=== PATIENT | female | born 1960 | race Caucasian/White ===

== ENCOUNTER → 2018-02-27 | Outpatient (CLI) | payer BC ==
--- NOTE | 2018-03-01 13:47 | MM ---
Reason for exam: screening (asymptomatic). Last mammogram was performed 1 year and 11 months ago. History: Patient is postmenopausal. Benign left US cyst aspiration ea add of the left breast, December 12, 2004. Benign left US cyst aspiration of the left breast, December 12, 2004. Physical Findings: A clinical breast exam by your physician is recommended on an annual basis and results should be correlated with mammographic findings. MG 3D Screening Mammo W/Cad Bilateral CC and MLO view(s) were taken. Prior study comparison: April 07, 2016, bilateral MG screening mammo w CAD. December 31, 2013, bilateral MG screening mammo w CAD. The breast tissue is heterogeneously dense. This may lower the sensitivity of mammography. Stable benign calcifications. New nodular density upper inner left breast 5cm from nipple. ASSESSMENT: Incomplete: need additional imaging evaluation, BI-RAD 0 RECOMMENDATION: Special view mammogram and ultrasound of the left breast. [facility] will attempt to contact patient to return for supplemental views and ultrasound.
== END ==
LOC: RADMAMWWP 07:59
PROVIDERS: ATTEND Obstetrics & Gynecology
DX: Z12.31 Encounter for screening mammogram for malignant neoplasm of breast (principal)
CPT/HCPCS: 77063; 77067

== ENCOUNTER → 2018-03-04 | Outpatient (CLI) | payer BC ==
--- NOTE | 2018-03-05 09:59 | MM ---
Reason for exam: additional evaluation requested from abnormal screening. Last mammogram was performed less than 1 month ago. History: Patient is postmenopausal. Benign left US cyst aspiration ea add of the left breast, December 12, 2004. Benign left US cyst aspiration of the left breast, December 12, 2004. Physical Findings: Nurse did not find any significant physical abnormalities on exam. MG 3D Work Up W/Cad LT Spot compression CC, spot compression MLO, and LM view(s) were taken of the left breast. Prior study comparison: February 27, 2018, bilateral MG 3d screening mammo w/cad. April 07, 2016, bilateral MG screening mammo w CAD. The breast tissue is heterogeneously dense. This may lower the sensitivity of mammography. Finding: There is a 8 mm circumscribed oval mass in the upper quadrant, middle position of the left breast, persists on additional views. These results were verbally communicated with the patient and result sheet given to the patient on 03/04/18. ASSESSMENT: Incomplete: need additional imaging evaluation, BI-RAD 0 RECOMMENDATION: Ultrasound of the left breast.
--- NOTE | 2018-03-05 11:11 | USB ---
Reason for exam: additional evaluation requested from abnormal screening. History: Patient is postmenopausal. Benign left US cyst aspiration ea add of the left breast, December 12, 2004. Benign left US cyst aspiration of the left breast, December 12, 2004. US Breast Workup Limited LT Left limited breast ultrasound including focal area of concern, retroareolar and axilla demonstrates a 0.7 x 0.2 x 1.1cm oval, cystic lesion at 9 o'clock, a 0.7 x 0.4 x 0.6cm round, mixed lesion at 10 o'clock, a 0.9cm cystic lesion at 11 o'clock, a 1.0 x 0.3 x 0.5cm ductal lesion at 12 o'clock and a 0.8 x 0.4 x 0.9cm cystic lesion at 12 o'clock. These results were verbally communicated with the patient and result sheet given to the patient on 03/04/18. ASSESSMENT: Probably benign, BI-RAD 3 RECOMMENDATION: Follow-up diagnostic mammogram and ultrasound of the left breast in 6 months.
== END | disposition home or self-care (01) ==
LOC: RADMAMWWP 14:10
PROVIDERS: ATTEND Obstetrics & Gynecology
DX: R92.8 Other abnormal and inconclusive findings on diagnostic imaging of breast (principal)
CPT/HCPCS: 77061; 77065

== ENCOUNTER → 2019-06-23 | Outpatient (CLI) | payer BC ==
--- NOTE | 2019-06-24 13:25 | MM ---
Reason for exam: screening (asymptomatic). Last mammogram was performed 1 year and 4 months ago. History: Patient is postmenopausal. Benign left US cyst aspiration ea add of the left breast, December 12, 2004. Benign left US cyst aspiration of the left breast, December 12, 2004. Physical Findings: A clinical breast exam by your physician is recommended on an annual basis and results should be correlated with mammographic findings. MG Screening Mammo w CAD Bilateral CC and MLO view(s) were taken. Prior study comparison: February 27, 2018, bilateral MG 3d screening mammo w/cad. April 07, 2016, bilateral MG screening mammo w CAD. December 31, 2013, bilateral MG screening mammo w CAD. The breast tissue is heterogeneously dense. This may lower the sensitivity of mammography. There is chronic nodularity in the left breast. Benign oil cyst calcifications on the right. No significant changes when compared with prior studies. ASSESSMENT: Negative, BI-RAD 1 RECOMMENDATION: Routine screening mammogram of both breasts in 1 year.
== END | disposition home or self-care (01) ==
LOC: RADMAMWWP 14:47
PROVIDERS: ATTEND Family Medicine
DX: Z12.31 Encounter for screening mammogram for malignant neoplasm of breast (principal)
CPT/HCPCS: 77067

== ENCOUNTER → 2020-11-09 | Outpatient (CLI) | payer BC ==
--- NOTE | 2020-11-13 13:39 | MM ---
Reason for exam: screening (asymptomatic). Last mammogram was performed 1 year and 5 months ago. History: Patient is postmenopausal. Benign left US cyst aspiration ea add of the left breast, December 12, 2004. Benign left US cyst aspiration of the left breast, December 12, 2004. Physical Findings: A clinical breast exam by your physician is recommended on an annual basis and results should be correlated with mammographic findings. MG 3D Screening Mammo W/Cad Bilateral CC and MLO view(s) were taken. Prior study comparison: June 23, 2019, bilateral MG screening mammo w CAD. March 04, 2018, left breast MG 3d work up w/cad LT. February 27, 2018, bilateral MG 3d screening mammo w/cad. The breast tissue is heterogeneously dense. This may lower the sensitivity of mammography. There is chronic nodularity in the left breast. No significant changes when compared with prior studies. ASSESSMENT: Benign, BI-RAD 2 RECOMMENDATION: Routine screening mammogram of both breasts in 1 year.
== END | disposition home or self-care (01) ==
LOC: RADMAMWWP 08:14
PROVIDERS: ATTEND Internal Medicine
DX: Z12.31 Encounter for screening mammogram for malignant neoplasm of breast (principal); Z78.0 Asymptomatic menopausal state
CPT/HCPCS: 77063; 77067

== ENCOUNTER 2021-03-20 09:27 | Day surgery (SDC) | payer BC ==
[2021-03-18 16:29] VITALS: BMI 23.1
[~2021-03-20 09:27] MED LIST: LACTATED RINGERS 1,000 ML IV SCH; LIDOCAINE 1% (10MG/ML) FOR IV START INTRADERMA PRN
[2021-03-20 09:54] VITALS: RESP 16; TEMP 97.8
[2021-03-20] MEDS ORDERED: PROPOFOL 10 MG/ML 20 ML VIAL IV ONE (10:32)
--- NOTE | 2021-03-20 10:51 | P.PCN ---
Date of Procedure: 03/20/21 Procedure(s) Performed: BRIEF HISTORY: Patient is a 60-year-old pleasant 1 scheduled for an elective colonoscopy as a part of value should prior history of colon polyps and family history of colon cancer. Her mother and maternal grandmother both were diagnosed with colon cancer in the 60's. She also has 2 maternal aunts that was diagnosed with colon cancer. PROCEDURE PERFORMED: Colonoscopy. PREOPERATIVE DIAGNOSIS: Screening for colon cancer and family history of colon cancer.. IV sedation per Anesthesia. PROCEDURE: After informed consent was obtained, the patient, was brought into the endoscopy unit. IV sedation was administered by Anesthesia under continuous monitoring. Digital rectal examination was normal. Initially the Olympus CF-160 flexible video colonoscope was then inserted in the rectum, gradually advanced into the cecum without any difficulty. Careful examination was performed as the scope was gradually being withdrawn. Ileocecal valve and the appendiceal orifice were visualized and appeared normal. Prep was excellent. Mucosa of the cecum, ascending colon, transverse colon, descending colon, sigmoid colon, and rectum appeared normal. Retroflexion was performed in the rectum and no lesions were seen. Moderate sigmoid diverticulosis. The patient tolerated the procedure well. IMPRESSION: Normal-appearing colon from rectum to cecum with no evidence of colorectal neoplasia. Moderate left-sided diverticulosis. RECOMMENDATIONS: Findings of this examination were discussed with the patient as well her family. She was advised to have a repeat screening colonoscopy every 5 years because of the strong family history of colon cancer..
[2021-03-20 11:13] VITALS: BP 123/77; PULSE 70
== END 2021-03-20 11:40 | disposition home or self-care (01) ==
LOC: ORWHC2ENDO 09:27
PROVIDERS: ATTEND Internal Medicine Gastroenterology
DX: Z12.11 Encounter for screening for malignant neoplasm of colon (principal); Z86.010 Personal history of colon polyps; Z80.0 Family history of malignant neoplasm of digestive organs; K57.30 Diverticulosis of large intestine without perforation or abscess without bleeding; J45.909 Unspecified asthma, uncomplicated; F41.9 Anxiety disorder, unspecified; F40.240 Claustrophobia; Z79.899 Other long term (current) drug therapy; Z88.2 Allergy status to sulfonamides
CPT/HCPCS: J2704; G0105; 45378

== ENCOUNTER → 2021-11-22 | Outpatient (CLI) | payer BC ==
--- NOTE | 2021-11-25 18:42 | MM ---
Reason for Exam: Screening (asymptomatic). Last screening mammogram was performed 12 month(s) ago. Patient History: Menarche at age 12. First Full-Term at age 23. Postmenopausal. 12/12/2004, Benign Cyst Aspiration on the left side. 12/12/2004, Benign Cyst Aspiration on the left side. Risk Values: Radha 5 year model risk: 1.3%. NCI Lifetime model risk: 6.4%. Prior Study Comparison: 03/04/2018 Left Diagnostic Mammogram, [facility]. 06/23/2019 Bilateral Screening Mammogram, [facility]. 11/09/2020 Bilateral Screening Mammogram, [facility]. Tissue Density: The breast tissue is heterogeneously dense. This may lower the sensitivity of mammography. Findings: Analyzed By CAD. Unchanged scattered benign calcifications in both sides. Underlying chronic nodularity on the right more apparent on 3-D images. No significant change from prior exams. Overall Assessment: Benign, BI-RAD 2 Management: Screening Mammogram of both breasts in 1 year. 1. Patient should continue monthly self breast exams. 2. A clinical breast exam by your physician is recommended on an annual basis. 3. This exam should not preclude additional follow-up of suspicious palpable abnormalities. Electronically signed and approved by: Priyanka Schwarz M.D. Radiologist
== END | disposition home or self-care (01) ==
LOC: RADMAMWWP 10:51
PROVIDERS: ATTEND Nurse Practitioner Family
DX: Z12.31 Encounter for screening mammogram for malignant neoplasm of breast (principal); Z78.0 Asymptomatic menopausal state
CPT/HCPCS: 77063; 77067

== ENCOUNTER → 2022-12-09 | Outpatient (CLI) | payer BC ==
--- NOTE | 2022-12-10 09:56 | MM ---
Reason for Exam: Screening (asymptomatic). Last mammogram was performed 1 year(s) and 1 month(s) ago. Patient History: Menarche at age 12. First Full-Term at age 23. Postmenopausal. Patient used Progesterone for 1 year. 12/12/2004, Benign Cyst Aspiration on the left side. 12/12/2004, Benign Cyst Aspiration on the left side. Risk Values: Radha 5 year model risk: 1.4%. NCI Lifetime model risk: 6.2%. Prior Study Comparison: 07/07/2005 Bilateral Diagnostic Mammogram, [facility]. 07/07/2005 Left Diagnostic Ultrasound, [facility]. 03/18/2006 Left Diagnostic Ultrasound, [facility]. 12/15/2008 Bilateral Screening Mammogram, [facility]. 03/01/2011 Bilateral Screening Mammogram, [facility]. 05/04/2012 Bilateral Screening Mammogram, [facility]. 05/21/2012 Right Diagnostic Mammogram, [facility]. 05/21/2012 Right Diagnostic Ultrasound, [facility]. 12/31/2013 Bilateral Screening Mammogram, [facility]. 04/07/2016 Bilateral Screening Mammogram, [facility]. 02/27/2018 Bilateral Screening Mammogram, [facility]. 03/04/2018 Left Diagnostic Mammogram, [facility]. 03/04/2018 Left Diagnostic Ultrasound, [facility]. 06/23/2019 Bilateral Screening Mammogram, [facility]. 11/09/2020 Bilateral Screening Mammogram, [facility]. 11/22/2021 Bilateral MG 3D screening mammo w/cad, [facility]. Tissue Density: The breast tissue is heterogeneously dense. This may lower the sensitivity of mammography. Findings: Analyzed By CAD. There is no suspicious group of microcalcifications or new suspicious mass in either breast. Overall Assessment: Benign, BI-RAD 2 Management: Screening Mammogram of both breasts in 1 year. . Patient should continue monthly self-breast exams. A clinical breast exam by your physician is recommended on an annual basis. This exam should not preclude additional follow-up of suspicious palpable abnormalities. Note on Radha scores and lifetime risk: 1. A Radha score greater than 3% is considered moderate risk. If this is the case, consider specialist referral to assess eligibility for a risk reducing agent. 2. If overall lifetime risk for the development of breast cancer is 20% or higher, the patient may qualify for future screening with alternating mammogram and breast MRI. Electronically signed and approved by: Ruben Christina M.D. Radiologis
== END | disposition home or self-care (01) ==
LOC: RADMAMWWP 16:45
PROVIDERS: ATTEND Family Medicine
DX: Z12.31 Encounter for screening mammogram for malignant neoplasm of breast (principal); Z78.0 Asymptomatic menopausal state
CPT/HCPCS: 77063; 77067

== ENCOUNTER → 2023-10-28 | Day surgery (SDC) | payer BC ==
[~2023-10-28] MED LIST changes: -LACTATED RINGERS 1,000 ML IV SCH; -LIDOCAINE 1% (10MG/ML) FOR IV START INTRADERMA PRN; +PROPOFOL 10 MG/ML 20 ML VIAL IV ONE
--- NOTE | 2023-10-28 07:49 | P.GSHP ---
History of Present Illness H&P Date: 10/28/23 CHIEF COMPLAINT: GERD HISTORY OF PRESENT ILLNESS: The patient is a 62-year-old female who presents reports gastroesophageal reflux disease and hiatal hernia. Upper endoscopy was offered for further evaluation and management. PAST MEDICAL HISTORY: Please see list. PAST SURGICAL HISTORY: Please see list. MEDICATIONS: Please see list. ALLERGIES: Please see list. SOCIAL HISTORY: No illicit drug use FAMILY HISTORY: No reports of Crohn disease or ulcerative colitis. REVIEW OF ORGAN SYSTEMS: CONSTITUTIONAL: No reports of fevers or chills. GI: Denies any blood in stools or constipation. PHYSICAL EXAM: VITAL SIGNS: Stable GENERAL: Well-developed and pleasant in no acute distress. HEENT: No scleral icterus. Extraocular movements grossly intact. Moist buccal mucosa. NECK: Supple without lymphadenopathy. CHEST: Unlabored respirations. Equal bilateral excursions. CARDIOVASCULAR: Regular rate and rhythm. Distal 2+ pulses. ABDOMEN: Soft, nondistended. MUSCULOSKELETAL: No clubbing, cyanosis, or edema. ASSESSMENT: 1. Gastroesophageal reflux disease 2. Hiatal hernia PLAN: 1. Recommend proceeding with an upper endoscopy Past Medical History Past Medical History: Asthma, Hyperlipidemia, Osteoarthritis (OA) Additional Past Medical History / Comment(s): hx occ palipations-PAST HISTORY - HORMONAL. seasonal allergies. lg hiatal hernia History of Any Multi-Drug Resistant Organisms: None Reported Past Surgical History: Breast Surgery, Section Additional Past Surgical History / Comment(s): breast biopsy-rt, colonoscopy, dental implant- no anesthesia Past Anesthesia/Blood Transfusion Reactions: Motion Sickness Additional Past Anesthesia/Blood Transfusion Reaction / Comment(s): claustrophobia Smoking Status: Never smoker - Past Family History Mother Family Medical History: Cancer Additional Family Medical History / Comment(s): COLON CANCER, GRANDMOTHER- COLON CANCER aunts and uncles Medications and Allergies Home Medications Medication Instructions Recorded Confirmed Type Albuterol Inhaler [Ventolin Hfa 1 - 2 puff INHALATION DIRECTED 03/14/16 10/26/23 History Inhaler] PRN Multivitamins, Thera [Multivitamin] 1 tab PO DAILY 03/14/16 10/26/23 History Montelukast Sodium [Singulair] 10 mg PO HS 03/18/21 10/26/23 History Fluticasone Nasal [place] [Flonase 1 spray EA NOSTRIL DAILY PRN 10/26/23 10/26/23 History Nasal [place]] Rosuvastatin [Crestor] 10 mg PO HS 10/26/23 10/26/23 History Allergies Allergy/AdvReac Type Severity Reaction Status Date / Time No Known Allergies Allergy Verified 10/26/23 11:49
[2023-10-28 07:52] VITALS: RESP 16; TEMP 97.7
[2023-10-28] MEDS: LACTATED RINGERS 1,000 ML IV SCH (07:52)
[2023-10-28] MEDS: LIDOCAINE 1% (10MG/ML) FOR IV START INTRADERMA ONE (07:53)
[2023-10-28] MEDS: IV FLUID CONTINUATION 1,000 ML IV ONE (07:53)
--- NOTE | 2023-10-28 08:20 | P.PCN ---
Date of Procedure: 10/28/23 Description of Procedure: PREOPERATIVE DIAGNOSIS: Hiatal hernia Atypical chest pain Dysphagia POSTOPERATIVE DIAGNOSIS: Paraesophageal diaphragmatic hiatal hernia, grade 4 Acute on chronic gastritis OPERATION: Esophagogastroduodenoscopy SURGEON: Maria Ines Hood MD ANESTHESIA: MAC. INDICATIONS: The patient is a 62-year-old female who presents with atypical chest pain including dysphagia from hiatal hernia. Benefits and risks of the procedure were described. Informed consent was obtained. DESCRIPTION: The patient was brought into the endoscopy suite and laid in the left lateral decubitus position. An Olympus gastroscope was passed along the posterior oropharynx down to the distal esophagus where the squamocolumnar junction was encountered at 33 cm from the incisors. The stomach was entered and no bile reflux was found. Additional findings are listed below. The first through third portion of the duodenum was examined. Retroflexion of the scope confirmed Hill grade 4 lower esophageal valve. The squamocolumnar junction demonstrated LA grade A erosive esophagitis. The stomach was desufflated. The patient tolerated the procedure well. FINDINGS: Squamocolumnar junction 33 cm from the incisors. Diaphragmatic hiatus at 43 cm. Hiatal hernia, 10 cm, paraesophageal with organoaxial rotation Hill grade 4 lower esophageal valve. LA grade A erosive esophagitis. Chronic gastritis along diaphragmatic hiatus and antrum RECOMMENDATIONS: Recommend barium swallow for additional anatomy of severe paraesophageal hiatal hernia Plan - Discharge Summary Discharge Rx Participant: No New Discharge Prescriptions: New Omeprazole [PriLOSEC] 40 mg PO DAILY #14 cap Continue Multivitamins, Thera [Multivitamin (formulary)] 1 tab PO DAILY Albuterol Inhaler [Ventolin Hfa Inhaler] 1 - 2 puff INHALATION DIRECTED PRN PRN Reason: Shortness Of Breath Rosuvastatin [Crestor] 10 mg PO HS Montelukast Sodium [Singulair] 10 mg PO HS Fluticasone Nasal [place] [Flonase Nasal [place]] 1 spray EA NOSTRIL DAILY PRN PRN Reason: Allergy Symptoms Discharge Medication List Albuterol Inhaler [Ventolin Hfa Inhaler] 1 - 2 puff INHALATION DIRECTED PRN 03/14/16 [History] Multivitamins, Thera [Multivitamin (formulary)] 1 tab PO DAILY 03/14/16 [History] Montelukast Sodium [Singulair] 10 mg PO HS 11/22/21 [History] Fluticasone Nasal [place] [Flonase Nasal [place]] 1 spray EA NOSTRIL DAILY PRN 10/26/23 [History] Rosuvastatin [Crestor] 10 mg PO HS 10/26/23 [History] Omeprazole [PriLOSEC] 40 mg PO DAILY #14 cap 10/28/23 [Rx] Follow up Appointment(s)/Referral(s): Maria Ines Hood MD [STAFF PHYSICIAN] - 11/24/23 10:30 am Patient Instructions/Handouts: Hiatal Hernia (DC), Gastritis (DC) Discharge Disposition: HOME SELF-CARE
[2023-10-28 08:31] VITALS: BP 121/80; PULSE 66
== END | disposition home or self-care (01) ==
LOC: ORWHC2ENDO 07:13
PROVIDERS: ATTEND Surgery Plastic and Reconstructive Surgery
DX: K29.50 Unspecified chronic gastritis without bleeding (principal); K44.9 Diaphragmatic hernia without obstruction or gangrene; K29.00 Acute gastritis without bleeding; K21.9 Gastro-esophageal reflux disease without esophagitis; J45.909 Unspecified asthma, uncomplicated; E78.5 Hyperlipidemia, unspecified; M19.90 Unspecified osteoarthritis, unspecified site; Z80.0 Family history of malignant neoplasm of digestive organs; Z79.899 Other long term (current) drug therapy; Z98.890 Other specified postprocedural states
CPT/HCPCS: 43235; J2704

== ENCOUNTER → 2023-10-28 | Outpatient (CLI) | payer BC ==
--- NOTE | 2023-10-28 12:43 | FL ---
EXAMINATION TYPE: FL barium swallow DATE OF EXAM: 10/28/2023 CLINICAL INDICATION: 62-year-old female status post endoscopy, K4 4.9. COMPARISON: None Total Fluoroscopy Time: 2 minutes 25 seconds 615.48 mGycm2 DAP 50 images obtained. FINDINGS: The swallowing mechanism is normal and hypopharyngeal anatomy is preserved. The cervical and thoracic portions have a normal course and caliber and normal motility. The mucosa is normal and no persistent filling defect is encountered. However, we note a very large hiatal hernia occupying the lower chest. This involves most of the stom ach in an organoaxial position. There is transition point at the distal stomach likely as it passes t hrough the diaphragmatic hiatus. The antrum and pylorus are located in the upper abdomen. IMPRESSION: 1. Very large hiatal hernia involving over two thirds of the stomach in the lower chest with an organ oaxial orientation. 2. No specific abnormality seen of the esophagus.
== END | disposition home or self-care (01) ==
LOC: RADUSWWP 07:10
PROVIDERS: ATTEND Surgery Plastic and Reconstructive Surgery
DX: K44.9 Diaphragmatic hernia without obstruction or gangrene (principal)
CPT/HCPCS: 74220

== ENCOUNTER → 2023-12-25 | Outpatient (CLI) | payer BC ==
--- NOTE | 2023-12-29 13:32 | MM ---
Reason for Exam: Screening (asymptomatic). Last screening mammogram was performed 12 month(s) ago. Patient History: Menarche at age 12. First Full-Term at age 23. Postmenopausal. Patient used Progesterone for 1 year. 12/12/2004, Benign Cyst Aspiration on the left side. 12/12/2004, Benign Cyst Aspiration on the left side. Risk Values: Radha 5 year model risk: 1.4%. NCI Lifetime model risk: 6.0%. Prior Study Comparison: 04/07/2016 Bilateral Screening Mammogram, [facility]. 02/27/2018 Bilateral Screening Mammogram, [facility]. 03/04/2018 Left Diagnostic Mammogram, [facility]. 06/23/2019 Bilateral Screening Mammogram, [facility]. 11/09/2020 Bilateral Screening Mammogram, [facility]. 11/22/2021 Bilateral MG 3D screening mammo w/cad, [facility]. 12/09/2022 Bilateral MG 3D screening mammo w/cad, [facility]. Tissue Density: The breasts are heterogeneously dense, which may obscure small masses. Findings: Analyzed By CAD. Right breast: There is no suspicious group of microcalcifications or new suspicious mass. Benign-appearing calcifications right breast. Left breast: There is no suspicious group of microcalcifications or new suspicious mass. Benign-appearing calcifications left breast. Overall Assessment: Benign, BI-RAD 2 Management: Screening Mammogram of both breasts in [address] [facility] will attempt to contact patient to return for supplemental views and ultrasound if indicated. Patient should continue monthly self-breast exams. A clinical breast exam by your physician is recommended on an annual basis. This exam should not preclude additional follow-up of suspicious palpable abnormalities. Note on Radha scores and lifetime risk: 1. A Radha score greater than 3% is considered moderate risk. If this is the case, consider specialist referral to assess eligibility for a risk reducing agent. 2. If overall lifetime risk for the development of breast cancer is 20% or higher, the patient may qualify for future screening with alternating mammogram and breast MRI. Electronically signed and approved by: Akin Weston DO
== END | disposition home or self-care (01) ==
LOC: RADMAMWWP 08:00
PROVIDERS: ATTEND Obstetrics & Gynecology
DX: Z12.31 Encounter for screening mammogram for malignant neoplasm of breast
CPT/HCPCS: 77063; 77067

== ENCOUNTER 2024-01-22 06:16 | Day surgery (SDC) | payer BC ==
--- NOTE | 2024-01-22 06:11 | P.GSHP ---
History of Present Illness H&P Date: 01/22/24 CHIEF COMPLAINT: Paraesophageal hiatal hernia with gastroesophageal reflux disease. HISTORY OF PRESENT ILLNESS: The patient is a 63-year-old female who presents with symptomatic paraesophageal hiatal hernia over one year with gastroesophageal reflux disease. She has completed upper endoscopy workup. Now she presents for surgical intervention. PAST MEDICAL HISTORY: Please see list. PAST SURGICAL HISTORY: Please see list. MEDICATIONS: Please see list. ALLERGIES: Please see list. SOCIAL HISTORY: No illicit drug use FAMILY HISTORY: No reports of Crohn disease or ulcerative colitis. REVIEW OF ORGAN SYSTEMS: CONSTITUTIONAL: No reports of fevers or chills. GI: Denies any blood in stools or constipation. Rest of review unremarkable PHYSICAL EXAM: VITAL SIGNS: Stable GENERAL: Well-developed pleasant and in no acute distress. HEENT: No scleral icterus. Extraocular movements grossly intact. Moist buccal mucosa. NECK: Supple without lymphadenopathy. CHEST: Unlabored respirations. Equal bilateral excursions. CARDIOVASCULAR: Regular rate and rhythm. Distal 2+ pulses. ABDOMEN: Soft, nondistended. No peritoneal signs. MUSCULOSKELETAL: No clubbing, cyanosis, or edema. SKIN: Well-perfused. Good skin turgor. REPORTS: Upper endoscopy demonstrates paraesophageal hiatal hernia BARIUM SWALLOW: Images reviewed demonstrating paraesophageal hiatal hernia. This is my independent interpretation. REPORTS: Cardiology risk assessment obtained. Please see chart. ASSESSMENT: 1. Diaphragmatic paraesophageal hiatal hernia with severe gastroesophageal reflux disease. PLAN: 1. Recommend proceeding with a robotic paraesophageal hiatal hernia with possible mesh. 2. Benefits and risks of surgical intervention was discussed including possibility of open technique. 3. Obtain CMP and CBC on day of procedure due to restrictive 2 week diet. 4. DVT prophylaxis. 5. Antibiotic prophylaxis. 6. She has also completed a very low caloric high-protein diet to address underlying hepatomegaly. 7. Non narcotic pain management including abdominal wall block described 8. Blood sugar glucose described. 9. Weight loss management described. 10. Obtain EKG on day of procedure due to high risk of cardiac arrhythmia following surgery and correction of paraesophageal hiatal hernia. 11. She is elevated risk for complications. 12. Possibility of same day discharge pending response to surgery. Past Medical History Past Medical History: Asthma, Hyperlipidemia, Osteoarthritis (OA) Additional Past Medical History / Comment(s): hx occ palipations-PAST HISTORY - HORMONAL. seasonal allergies. lg hiatal hernia History of Any Multi-Drug Resistant Organisms: None Reported Past Surgical History: Breast Surgery, Section Additional Past Surgical History / Comment(s): breast biopsy-rt, colonoscopy, dental implant- no anesthesia Past Anesthesia/Blood Transfusion Reactions: Motion Sickness Additional Past Anesthesia/Blood Transfusion Reaction / Comment(s): claustrophobia Smoking Status: Never smoker - Past Family History Mother Family Medical History: Cancer Additional Family Medical History / Comment(s): COLON CANCER, GRANDMOTHER- COLON CANCER aunts and uncles Medications and Allergies Home Medications Medication Instructions Recorded Confirmed Type Albuterol Inhaler [Ventolin Hfa 1 - 2 puff INHALATION DIRECTED 03/14/16 01/14/24 History Inhaler] PRN Multivitamins, Thera [Multivitamin 1 tab PO DAILY 03/14/16 01/14/24 History (formulary)] Montelukast Sodium [Singulair] 10 mg PO HS 03/18/21 01/14/24 History Fluticasone Nasal [place] [Flonase 1 spray EA NOSTRIL DAILY PRN 10/26/23 01/14/24 History Nasal [place]] Rosuvastatin [Crestor] 10 mg PO HS 10/26/23 01/14/24 History Allergies Allergy/AdvReac Type Severity Reaction Status Date / Time No Known Allergies Allergy Verified 01/14/24 08:48
[~2024-01-22 06:16] MED LIST changes: +ONDANSETRON 4 MG/2 ML VIAL IVP PRN; -PROPOFOL 10 MG/ML 20 ML VIAL IV ONE
[2024-01-22] MEDS ORDERED: MIDAZOLAM 2 MG/2 ML VIAL IV PRN (06:47)
[2024-01-22] MEDS ORDERED: fentaNYL (PF) 50 MCG/ML 2 ML AMP IVP PRN (06:47)
[2024-01-22] MEDS ORDERED: LIDOCAINE 1% (10MG/ML) FOR IV START INTRADERMA PRN (06:47)
[2024-01-22] MEDS: ACETAMINOPHEN TAB 500 MG TAB PO PRN (07:16)
[2024-01-22] MEDS: LACTATED RINGERS 1,000 ML IV SCH (07:16)
[2024-01-22] MEDS: HEPARIN SODIUM,PORCINE 5,000 UNIT/ML 1 ML VIAL SQ PRN (07:16)
[2024-01-22] MEDS: DEXAMETHASONE SOD PHOSPHATE 4 MG/ML 1 ML VIAL IVP STA (07:16)
[2024-01-22] MEDS: ONDANSETRON 4 MG/2 ML VIAL IVP ONE (07:16)
[2024-01-22] MEDS: SCOPOLAMINE 1 MG/72 HR PATCH TRANSDERM STA (07:17)
[2024-01-22] MEDS: IV FLUID CONTINUATION 1,000 ML IV ONE ×3 (07:22→10:54)
[2024-01-22] MEDS ORDERED: HYDROmorphone (PF) 1 MG/ML ONE (07:27)
[2024-01-22] MEDS ORDERED: fentaNYL (PF) 50 MCG/ML 2 ML AMP ONE (07:27)
[2024-01-22] MEDS ORDERED: NEOSTIGMINE 1 MG/ML 10 ML VIAL ONE (07:27)
[2024-01-22] MEDS ORDERED: ONDANSETRON 4 MG/2 ML VIAL ONE (07:27)
[2024-01-22] MEDS ORDERED: LIDOCAINE 1% INJ 10MG/ML (20 ML MDV) ONE (07:27)
[2024-01-22] MEDS ORDERED: ROCURONIUM 10 MG/ML (5 ML VIAL) IV ONE (07:27)
[2024-01-22] MEDS ORDERED: PROPOFOL 10 MG/ML 20 ML VIAL IV ONE (07:27)
[2024-01-22] MEDS ORDERED: GLYCOPYRROLATE 0.2 MG/ML 2 ML VIAL ONE (07:27)
[2024-01-22] MEDS ORDERED: MIDAZOLAM 2 MG/2 ML VIAL ONE (07:27)
[2024-01-22] MEDS ORDERED: PHENYLEPHRINE-0.9% NACL SYG 1,000 MCG/10 ML SYRINGE ONE (07:27)
[2024-01-22 07:42] LABS: Basophils % (A) 1 %; Eosinophils # (A) 0.4 k/uL (0-0.7); Eosinophils % (A) 6 %; HCT 41.5 % (34.0-46.0); HGB 14.2 gm/dL (11.4-16.0); Lymphocytes # (A) 2.1 k/uL (1.0-4.8); Lymphocytes % (A) 30 %; MCH 31.6 pg (25.0-35.0); MCHC 34.3 g/dL (31.0-37.0); MCV 92.2 fL (80.0-100.0); Monocytes # (A) 0.4 k/uL (0-1.0); Monocytes % (A) 6 %; Neutrophils # (A) 3.7 k/uL (1.3-7.7); Neutrophils % (A) 54 %; Platelet Count 277 k/uL (150-450); RDW 12.2 % (11.5-15.5); WBC 6.9 k/uL (3.8-10.6)
[2024-01-22 07:50] LABS: ALT 14 U/L (4-34); AST 26 U/L (14-36); African American GFR (CKD) >90 (>60 ml/min/1.73 sqM); Albumin 4.8 g/dL (3.5-5.0); Alkaline Phosphatase 74 U/L (38-126); Anion Gap 13 mmol/L; Blood Urea Nitrogen 11 mg/dL (7-17); Calcium 9.7 mg/dL (8.4-10.2); Carbon Dioxide 24 mmol/L (22-30); Chloride 104 mmol/L (98-107); Glucose 75 mg/dL (74-99); Non-African American GFR(CKD) 82 (>60 ml/min/1.73 sqM); Potassium 4.3 mmol/L (3.5-5.1); Sodium 141 mmol/L (137-145); Total Bilirubin 0.9 mg/dL (0.2-1.3); Total Protein 7.9 g/dL (6.3-8.2)
[2024-01-22] MEDS: LIDOCAINE 1%-EPI 1:100,000 20 ML VIAL SQ ONE (08:05)
[2024-01-22] MEDS: HYDROmorphone 0.5 MG/0.5 ML SYRINGE IVP PRN (09:58)
[2024-01-22] MEDS ORDERED: HYDROmorphone 1 MG/ML 1 ML SYRINGE IVP PRN (10:14)
--- NOTE | 2024-01-22 10:34 | P.OP ---
Date of Procedure: 01/22/24 Description of Procedure: DESCRIPTION OF PROCEDURE(S): SURGEON: MARIA INES HOOD MD PREOPERATIVE DIAGNOSES: 1. Paraesophageal hiatal hernia, midline. 2. Gastroesophageal reflux disease. 3. Chronic obstructive pulmonary disease 4. Hyperlipidemia 4. Abnormal EKG 5. Motion sickness 6. Generalized anxiety disorder 7. Claustrophobia POSTOPERATIVE DIAGNOSES: 1. Paraesophageal hiatal hernia, midline, 7 x 8 cm with incarceration 2. Gastroesophageal reflux disease. 3. Chronic obstructive pulmonary disease 4. Hyperlipidemia 4. Abnormal EKG 5. Motion sickness 6. Generalized anxiety disorder 7. Claustrophobia 8. Acute duodenal ulcers without bleeding OPERATION: 1. Robotic-assisted da Tiera Xi laparoscopic reduction and repair of incarcerated paraesophageal hiatal hernia, 7 x 8 cm, with Matthews Biopatch A 8 x 8 cm, multiport. 2. Intraoperative esophagogastroduodenoscopy 3. Esophageal dilation 56-Prydeinig bougie ANESTHESIA: General with local anesthetic. ESTIMATED BLOOD LOSS: 5 mL SPECIMENS REMOVED: None. COMPLICATIONS: None. FINDINGS: 1. Duodenal ulcers identified upon upper endoscopy 2. Bougie 56-Prydeinig placed 3. 7 x 8 cm paraesophageal incarcerated diaphragmatic hiatal hernia with moderate dissection into the mediastinum. 4. Intra-abdominal esophageal length over 3 cm obtained 5. Matthews Biopatch A onlay mesh placed. 6. Squamocolumnar junction and diaphragmatic hiatus at 35 cm from the incisors INDICATIONS: The patient is a 63-year-old female who presents with regurgitation, gastroesophageal reflux disease and a symptomatic paraesophageal diaphragmatic hiatal hernia. Preoperative workup including upper endoscopy demonstrated a Hill grade 4 lower esophageal valve. Given the severity of her symptoms, particularly of her symptomatic diaphragmatic hiatal hernia, she had elected for surgical intervention. Benefits and risks including bleeding, infection, recurrence, dysphagia, injury to the lung, need for further surgery was described at length. Informed consent was obtained. DESCRIPTION: The patient was brought into the operating room and placed in supine position. Preoperatively she had received Heparin subcutaneously for DVT prophylaxis. After general induction, the abdomen was prepped and draped in standard sterile fashion. The patient had previously voided prior to coming to the operating room. Ioban draping was placed along the abdomen. A timeout protocol was confirmed with the surgical team, for which the patient's name, procedure to be performed including DVT prophylaxis with bilateral SCDs, and preoperative antibiotics were also confirmed. A robotic da Tiera Xi system was prepped and primed. At 10 cm from the xiphoid to just below the umbilicus, proposed port sites were marked with indelible marker along the left axillary line, left mid-clavicular line with each ports were marked 10 cm from each other. A 5 mm 0 degrees laparoscopic trocar entry was performed along the left upper quadrant. The abdomen was insufflated to 15 mmHg pressure she tolerated well. Diagnostic laparoscopy demonstrated no injury to bowel, viscera, or mesentery. The liver surface was unremarkable including thin edges consistent with her high-protein low-carb diet. No injury had occurred to the small bowel or viscera. Along the hiatus, a defect was found anteriorly. Next, one 8 mm robotic port was placed along the right upper abdomen. An 8-mm port was were placed along the left lateral abdominal wall. The camera 8-mm port was maintained along the epigastrium via the hernia defect. Another 12 mm port was placed along the left upper abdominal wall after exchanging the 5 mm port. Please note that the ports were placed at least 20 cm away from the target anatomy. Care was taken to check that each robotic arm were safely away from collision with the bed or the patient. At the epigastrium, a median sized Archie liver retractor was placed under direct visualization with the [employer] Supervisor placed over the right shoulder of the patient. The patient was repositioned in reverse Trendelenburg position at 25-degrees after lowering the bed. The robot was docked above the left side of the patient. Using a grasper for arm 3, a grasper for arm 1, including vessel sealer for arm 2, the robotic system was docked and primed as described. Instruments were interchanged by the clinical physician assistant. I had sat at the console. The gastrohepatic ligament was cleaved using a vessel sealer. Next, the phrenoesophageal ligament was mobilized and the distal esophagus was mobilized circumferentially with care of to the bilateral vagi nerves. The left and right crura was identified. A midline large hiatal hernia and sac was found. Circumferentially, the hernia sac was excised and brought into the peritoneal cavity. Care was taken to avoid any gastrotomy to the upper pole of the stomach. The measured defect was consistent with 8 cm axial length and 7 cm in width. The distal esophagus at least 3 cm was brought into the abdominal cavity. Once the hiatus and crura was dissected, nonabsorbable 2-[address] aced initially with running suture to reapproximate the diaphragmatic hiatus posteriorly including anteriorly. To buttress the repair, a Matthews Biopatch A was prepared along the back table as to reinforce the repair as an underlay. The mesh was placed along the crural repair and tagged using horizontal mattress sutures using 2-0 VLOC. I went to the head of the bed to perform intraoperative esop hagogastroduodenoscopy. A 56-Prydeinig bougie was carefully placed along the posterior oropharynx through the hiatus and then removed. An Olympus gastroscope was passed through posterior oropharynx, where the GE junction was found distal to the diaphragmatic hiatus. The intra-abdominal esophageal length obtained during the case was over 3 cm. The stomach was entered. Retroflexion of the scope confi rmed a Hill grade 1 lower esophageal valve. Duodenal ulcers along the first portion of duodenum was confirmed without bleeding. The stomach had been desufflated. No evidence of leaks were found either of the mucosal defects of the esophagus or stomach. The hiatal closure was consistent with a 56 Prydeinig bougie as a bougie was passed. This concluded the endoscopic portion of the case. The robot was undocked from the patient. I re-scrubbed into the case. All instruments and pneumoperitoneum were evacuated from the abdominal cavity. Incisions were reapproximated using 4-0 Monocryl in an interrupted subcuticular fashion. Liquid glue was applied to the skin. Local anesthetic was infiltrated in all wounds for postop analgesia. Multiple intra-abdominal films were obtained. At the end of the procedure, needle, sponge, and instrument count was verified correct by the surgical assistant. The patient had tolerated the procedure well and was taken to the postanesthesia unit in stable condition. Intraoperative films were reviewed with the patient's family who was pleased with the level of care. Additional treatment for acute duodenal ulcers described. Plan - Discharge Summary Discharge Rx Participant: No New Discharge Prescriptions: New Acetaminophen Tab [Tylenol Tab] 1,000 mg PO Q6HR PRN #30 tablet PRN Reason: Pain Simethicone 40 mg/0.6 ml Drops [Mylicon Drops] 40 mg PO Q6HR PRN #30 ml PRN Reason: Abdominal Distention Omeprazole [PriLOSEC] 40 mg PO DAILY #14 cap Continue Multivitamins, Thera [Multivitamin (formulary)] 1 tab PO DAILY Albuterol Inhaler [Ventolin Hfa Inhaler] 1 - 2 puff INHALATION DIRECTED PRN PRN Reason: Shortness Of Breath Rosuvastatin [Crestor] 10 mg PO HS Montelukast Sodium [Singulair] 10 mg PO HS Fluticasone Nasal [place] [Flonase Nasal [place]] 1 spray EA NOSTRIL DAILY PRN PRN Reason: Allergy Symptoms Discharge Medication List Albuterol Inhaler [Ventolin Hfa Inhaler] 1 - 2 puff INHALATION DIRECTED PRN 03/14/16 [History] Multivitamins, Thera [Multivitamin (formulary)] 1 tab PO DAILY 03/14/16 [History] Montelukast Sodium [Singulair] 10 mg PO HS 03/18/21 [History] Fluticasone Nasal [place] [Flonase Nasal [place]] 1 spray EA NOSTRIL DAILY PRN 10/26/23 [History] Rosuvastatin [Crestor] 10 mg PO HS 10/26/23 [History] Acetaminophen Tab [Tylenol Tab] 1,000 mg PO Q6HR PRN #30 tablet 01/22/24 [Rx] Omeprazole [PriLOSEC] 40 mg PO DAILY #14 cap 01/22/24 [Rx] Simethicone 40 mg/0.6 ml Drops [Mylicon Drops] 40 mg PO Q6HR PRN #30 ml 01/22/24 [Rx] Follow up Appointment(s)/Referral(s): Maria Ines Hood MD [STAFF PHYSICIAN] - 01/26/24 6:30 pm (TELEHEALTH) Patient Instructions/Handouts: Hiatal Hernia (DC), Laparoscopic Hiatal Hernia Repair (DC) Activity/Diet/Wound Care/Special Instructions: TELEHEALTH - DR WILL CALL YOU BETWEEN 9 am to 8 pm NO RETURN TO WORK UNTIL CLEARED BY SURGEON, FEB 20 Liquid diet only for 2 weeks until FEBRUARY 04 No lifting over 4 pounds in 4 weeks, JanAugust shower No soaking in bath tubs for 2 weeks, FEBRUARY 04 Please notify your surgeon if you develop nausea and vomiting including new onset of abdominal pain. Please ambulate at all times. Use Simethicone, Gas-X, Tylenol and ibuprofen or Aleve scheduled for the next 24-48 hours for best pain relief. Use ice along incisions for the today to prevent swelling. Please open, cut, crush pills larger than the size of a tic tack No carbonated beverages. No straws. Do not remove scopolamine patch for 3 days, if present Avoiding Gas Avoid drinking through a straw. Do not chew gum or tobacco. These actions cause you to swallow air, which produces excess gas in your stomach. Chew with your mouth closed. Avoid any foods that cause stomach gas and distention. These foods include corn, dried beans, peas, lentils, onions, broccoli, cauliflower and any food from the cabbage family. Avoid carbonated drinks, alcohol, citrus and tomato products. Carbonated drinks (sodas) are not allowed for the first six to eight weeks after surgery. After this time you can try them again in small amounts Clear Liquid Diet The first diet after surgery is the clear liquid diet. It includes the following liquids: Apple juice Cranberry juice Grape juice Chicken broth Beef broth Flavored gelatin (Jell-O) Decaf tea and coffee Caffeinated beverages are permitted based on tolerance Popsicles [place] ice Full Liquid Diet The full liquid diet contains anything on the clear liquid diet, plus: Milk, soy, rice and almond (no chocolate) Cream of wheat, cream of rice, grits Strained creamed soups (no tomato or broccoli) Vanilla and strawberry-flavored ice cream Sherbet Blended, custard styled or whipped yogurt (plain or vanilla only) Vanilla and butterscotch pudding (no chocolate or coconut) Nutritional drinks including Ensure, Boost, [place] Instant Breakfast (no chocolate-flavored) Note: Dairy products, such as milk, ice cream and pudding, may cause diarrhea in some people just after surgery. You may need to avoid milk products. If so, substitute them with lactose-free beverages, such as soy, rice, Lactaid or almond milks. Discharge Disposition: HOME SELF-CARE
[2024-01-22] MEDS: DEXAMETHASONE SOD PHOSPHATE 4 MG/ML 1 ML VIAL IV ONE (12:22)
[2024-01-22 13:25] VITALS: BMI 25.0
--- NOTE | 2024-01-22 13:33 | FL ---
EXAMINATION TYPE: FL esophagus cervic/pharynx DATE OF EXAM: 01/22/2024 HISTORY: Postop COMPARISON: NONE TECHNIQUE: A single contrast esophagram is performed utilizing Isovue 370. A total of 1 minute 34 s econds of fluoroscopic time was utilized during procedure and 16 images obtained. Total dose area pr oduct (DAP) in uGy*m?, mGy*cm? (or similar) : Obtained. FINDINGS: The there is a moderate delay at the level of the GE junction. Delayed imaging does demonstrate passa ge of contrast into the stomach. No obvious extravasation. Bibasilar consolidation. IMPRESSION: 1. Moderate delay at the GE junction compatible with partial obstructive pattern. 2. No evidence of extravasation. [facility], , 01/22/2024 1:30 PM
[2024-01-22] MEDS: METOCLOPRAMIDE 5 MG/ML 2 ML VIAL IVP SCH (13:35)
[2024-01-22] MEDS: KETOROLAC 15 MG/ML 1 ML VIAL IVP SCH (13:35)
[2024-01-22 14:28] VITALS: BP 126/73; PULSE 84; RESP 16; TEMP 97.1
[2024-01-22] MEDS: ACETAMINOPHEN IV (For NPO) 1,000 MG in EMPTY BAG 1 BAG IVPB STA (16:19)
[2024-01-22] MEDS: SODIUM CHLORIDE 0.9% 1,000 ML IV ONE (16:20)
[2024-01-22] MEDS: DEXAMETHASONE SOD PHOSPHATE 10 MG/ML 1 ML VIAL IVP STA (16:20)
[2024-01-22] MEDS ORDERED: ONDANSETRON 4 MG/2 ML VIAL IVP SCH (18:00)
[2024-01-22] MEDS ORDERED: HEPARIN SODIUM,PORCINE 5,000 UNIT/ML 1 ML VIAL SQ SCH (21:00)
== END 2024-01-22 18:51 | disposition home or self-care (01) ==
LOC: OR 06:16 → 5NMEDONC 10:05 → OR 18:51
PROVIDERS: ATTEND Surgery Plastic and Reconstructive Surgery
DX: K44.0 Diaphragmatic hernia with obstruction, without gangrene
CPT/HCPCS: 43282; 43283; 74210; 80053; 85025; S2900

== ENCOUNTER → 2024-03-04 | Day surgery (SDC) | payer BC ==
[~2024-03-04] MED LIST changes: +HYDROmorphone 0.5 MG/0.5 ML SYRINGE IVP PRN; +INDOCYANINE GREEN 25 MG VIAL IV STA; +KETOROLAC 15 MG/ML 1 ML VIAL ONE; +LIDOCAINE 1% INJ 10MG/ML (20 ML MDV) ONE; +METOPROLOL TARTRATE 5 MG/5 ML VIAL IVP ONE; +MIDAZOLAM 2 MG/2 ML VIAL IV PRN; +MIDAZOLAM 2 MG/2 ML VIAL ONE; -ONDANSETRON 4 MG/2 ML VIAL IVP PRN; +PHENYLEPHRINE-0.9% NACL SYG 1,000 MCG/10 ML SYRINGE ONE; +PROPOFOL 10 MG/ML 20 ML VIAL IV ONE; +ROCURONIUM 10 MG/ML (5 ML VIAL) IV ONE; +SUGAMMADEX SODIUM 200 MG/2 ML SDV IV ONE; +fentaNYL (PF) 50 MCG/ML 2 ML AMP ONE
--- NOTE | 2024-03-04 06:36 | P.GSHP ---
History of Present Illness H&P Date: 03/04/24 CHIEF COMPLAINT: Cholecystitis HISTORY OF PRESENT ILLNESS: The patient is a 63-year-old female who presents with history of epigastric including right upper quadrant abdominal pain. She underwent diagnostic studies for her gallbladder. Separately her clinical picture was consistent with cholecystitis. Now she presents for surgical intervention. PAST MEDICAL HISTORY: Please see list PAST SURGICAL HISTORY: Please see list MEDICATIONS: Please see list ALLERGIES: Please see list SOCIAL HISTORY: Please see list FAMILY HISTORY: Please see list REVIEW OF ORGAN SYSTEMS: CONSTITUTIONAL: No reports of fevers or chills. HEENT: Denies any troubles with the vision or hearing. ENDOCRINE: No reports of hypothyroidism. No diabetes. RESPIRATORY: No recent pneumonias. CARDIOVASCULAR: Denies chest pain or palpitations GI: No blood in stools or constipation. MUSCULOSKELETAL: Has occasional joint pain including back pain. NEURO: No seizure disorders or headaches. No recent stroke. PSYCH: No depression or suicidal ideation. GENITOURINARY: No active blood in urine. No urinary hesitancy. HEMATOLOGIC: No personal or family history of DVTs or pulmonary emboli. SKIN: No skin cancer. PHYSICAL EXAM: VITAL SIGNS: Afebrile vital signs stable GENERAL: Well-developed pleasant in no acute distress. HEENT: No scleral icterus. Extraocular movements grossly intact. Moist buccal mucosa. NECK: Supple without lymphadenopathy. CHEST: Unlabored respirations. Equal bilateral excursions. CARDIOVASCULAR: Regular rate regular rhythm rhythm. Distal 2+ pulses. ABDOMEN: Soft, nondistended. Tender along the epigastrium and right upper quadrant. MUSCULOSKELETAL: No clubbing, cyanosis, or edema. NEURO: Cranial nerves II to XII within normal limits. No focal or lateralizing signs. PSYCH: Alert and oriented to person, place and time. SKIN: Well-perfused good skin turgor. ASSESSMENT: 1. Epigastric and right upper quadrant abdominal pain 2. Chronic cholecystitis 3. Symptomatic gallstones. PLAN: 1. Will need a robotic cholecystectomy possible open. Benefits and risks were described. 2. Heparin for DVT prophylaxis 5000 units. 3. Antibiotic prophylaxis. 4. CBC and CMP on day of procedure 5. Non-narcotic pre and post op pain management reviewed. 6. Indocyanine green for biliary imaging. Past Medical History Past Medical History: Hyperlipidemia, Osteoarthritis (OA) Additional Past Medical History / Comment(s): hx occ palipations-PAST HISTORY - HORMONAL. seasonal allergies. lg hiatal hernia repaired History of Any Multi-Drug Resistant Organisms: None Reported Past Surgical History: Breast Surgery, Section, Hernia Repair Additional Past Surgical History / Comment(s): breast biopsy-rt, colonoscopy, dental implant, laprascopic/robotic hiatal hernia repair w/lauren 01/22/24 Past Anesthesia/Blood Transfusion Reactions: Motion Sickness Additional Past Anesthesia/Blood Transfusion Reaction / Comment(s): claustrophobia Smoking Status: Never smoker - Past Family History Mother Family Medical History: Cancer Additional Family Medical History / Comment(s): COLON CANCER, GRANDMOTHER- COLON CANCER aunts and uncles Medications and Allergies Home Medications Medication Instructions Recorded Confirmed Type Albuterol Inhaler [Ventolin Hfa 1 - 2 puff INHALATION DIRECTED 03/14/16 01/22/24 History Inhaler] PRN Multivitamins, Thera [Multivitamin 1 tab PO DAILY 03/14/16 01/22/24 History (formulary)] Montelukast Sodium [Singulair] 10 mg PO HS 03/18/21 01/22/24 History Fluticasone Nasal [place] [Flonase 1 spray EA NOSTRIL DAILY PRN 10/26/23 01/22/24 History Nasal [place]] Rosuvastatin [Crestor] 10 mg PO HS 10/26/23 01/22/24 History Acetaminophen Tab [Tylenol Tab] 1,000 mg PO Q6HR PRN #30 tablet 01/22/24 Rx Omeprazole [PriLOSEC] 40 mg PO DAILY #14 cap 01/22/24 Rx Simethicone 40 mg/0.6 ml Drops 40 mg PO Q6HR PRN #30 ml 01/22/24 Rx [Mylicon Drops] Allergies Allergy/AdvReac Type Severity Reaction Status Date / Time No Known Allergies Allergy Verified 03/02/24 12:19
[2024-03-04 14:24] VITALS: RESP 16
[2024-03-04] MEDS: ONDANSETRON 4 MG/2 ML VIAL IVP PRN (14:43)
[2024-03-04] MEDS: HEPARIN SODIUM,PORCINE 5,000 UNIT/ML 1 ML VIAL SQ PRN (14:43)
[2024-03-04] MEDS: ACETAMINOPHEN TAB 500 MG TAB PO PRN (14:43)
[2024-03-04] MEDS: LACTATED RINGERS 1,000 ML IV SCH (14:43)
[2024-03-04 14:48] LABS: Basophils % (A) 0 %; Eosinophils # (A) 0.4 k/uL (0-0.7); Eosinophils % (A) 4 %; HCT 40.7 % (34.0-46.0); HGB 13.5 gm/dL (11.4-16.0); Lymphocytes # (A) 2.4 k/uL (1.0-4.8); Lymphocytes % (A) 26 %; MCHC 33.1 g/dL (31.0-37.0); MCV 93.8 fL (80.0-100.0); Mean Platelet Volume 7.1; Monocytes # (A) 0.6 k/uL (0-1.0); Monocytes % (A) 6 %; Neutrophils # (A) 5.8 k/uL (1.3-7.7); Neutrophils % (A) 61 %; Platelet Count 295 k/uL (150-450); RBC 4.34 m/uL (3.80-5.40); RDW 12.3 % (11.5-15.5); WBC 9.5 k/uL (3.8-10.6)
[2024-03-04] MEDS: IV FLUID CONTINUATION 1,000 ML IV ONE (14:50)
[2024-03-04 15:03] LABS: ALT 23 U/L (4-34); AST 27 U/L (14-36); African American GFR (CKD) >90 (>60 ml/min/1.73 sqM); Albumin 4.6 g/dL (3.5-5.0); Alkaline Phosphatase 72 U/L (38-126); Anion Gap 15 mmol/L; Blood Urea Nitrogen 22 mg/dL (7-17); Calcium 9.1 mg/dL (8.4-10.2); Carbon Dioxide 21 mmol/L (22-30); Chloride 105 mmol/L (98-107); Glucose 83 mg/dL (74-99); Non-African American GFR(CKD) >90 (>60 ml/min/1.73 sqM); Potassium 3.6 mmol/L (3.5-5.1); Sodium 141 mmol/L (137-145); Total Bilirubin 0.9 mg/dL (0.2-1.3); Total Protein 7.6 g/dL (6.3-8.2)
[2024-03-04] MEDS: LIDOCAINE 1%-EPI 1:100,000 20 ML VIAL SQ ONE (18:26)
[2024-03-04] MEDS: LACTATED RINGERS 1,000 ML IV ONE (18:48)
[2024-03-04 19:21] VITALS: TEMP 97
[2024-03-04] MEDS: droPERidol 5 MG/2 ML VIAL IVP ONE (20:27)
[2024-03-04 21:00] VITALS: BP 148/70; PULSE 74
--- NOTE | 2024-03-10 18:46 | P.OP ---
Date of Procedure: 03/04/24 Description of Procedure: SURGEON: MARIA INES HOOD MD COMMUNICATIONS AGENT: JOO PREOPERATIVE DIAGNOSES: 1. Chronic cholecystitis 2. Right upper quadrant abdominal pain 3. Hyperlipidemia 4. Seasonal allergies 5. Motion sickness 6. Claustrophobia 7. Generalized anxiety disorder POSTOPERATIVE DIAGNOSES: 1. Chronic cholecystitis 2. Right upper quadrant abdominal pain 3. Hyperlipidemia 4. Seasonal allergies 5. Motion sickness 6. Claustrophobia 7. Generalized anxiety disorder OPERATION: Robotic-assisted da Tiera Xi laparoscopic cholecystectomy, multiport with FIREFLY ESTIMATED BLOOD LOSS: 5 mL. SPECIMENS REMOVED: Gallbladder. COMPLICATIONS: None. OPERATIVE FINDINGS: 1. Long cystic duct identified. 2. Common bile duct within normal limits. 3. Dome down technique performed. 4. Features consistent with cholecystitis. 5. Case contaminated due to leakage from clipping site on the gallbladder evacuated. 6. No bleeding or bile from clips at cystic duct stump. 7. No intra-abdominal adhesions INDICATIONS: The patient is a 63-year-old female who presents with moderate to severe right upper quadrant abdominal pain. Clinical findings consistent with chronic cholecystitis. Robotic assisted laparoscopic approach was described. Benefits and risks of the procedure including but not limited to bleeding, infection, injury to the biliary tree was described. Informed consent was obtained. DESCRIPTION OF PROCEDURE: Patient was brought to the operating room, placed in supine position. After general induction, the abdomen had been prepped and draped in standard sterile fashion. The robotic da Tiera XI system was primed. After a timeout protocol was performed, the patient had been prepped and draped in standard sterile fashion. The patient was injected with indocyanine green. A 5 mm 0 degrees laparoscopic trocar entry was performed along the left upper quadrant. The abdomen insufflated to 15 mmHg pressure which was tolerated well. Diagnostic laparoscopy demonstrated no injury to bowel viscera or mesentery. The liver surface was unremarkable. Next, two 8 mm robotic ports were placed along the right upper abdomen. The camera 8-mm port was maintained along the epigastrium. Another 8 mm port was placed along the left upper abdominal wall after exchanging the 5 mm port. Please note that the ports were placed at least 10 to 15 cm away from the target anatomy of the gallbladder. The robot was docked along the left lateral abdomen. The patient was repositioned in reverse Trendelenburg position. Using a grasper for arm 3, a grasper for arm 4, including hook cautery for arm 1, the robotic system was docked and primed as described. Instruments were interchanged by the health assistant including hook cautery, Bovie cautery and clip appliers. I had sat at the console. The common bile duct was within normal limits and the cystic duct was elongated. Dome down technique starting from the fundus toward the infundibulum was performed to separate the gallbladder from the hepatic vessel. Next attention was brought to the infundibulum and cystic structures. The infundibulum and cystic duct were dissected free from surrounding tissues. The cystic duct was isolated. FIREFLY was used to identify the cystic artery and cystic structures. A critical view of safety was obtained. Large PLASTIC clips were used throughout the entire case. Using a clip physicist light and optics, 3 clips were placed at the junction of the infundibulum and cystic duct. The cystic duct was divided at the junction of the infundibulum and cystic duct with 3 clips left along the stump. Next, the cystic artery was cauterized. Electro-Bovie cautery was used to remove the gallbladder from the hepatic fossa. Hemostasis was checked and found to be adequate. The robot was undocked. I re-scrubbed into the case. Mild bile ooze from the gallbladder after resection cleaned with sponges. Using a 10 mm Endo Catch bag via the left upper quadrant incision, the specimen was removed from the abdominal cavity. All pneumoperitoneum instruments were evacuated from the abdominal cavity. The incisions were reapproximated using 4-0 Monocryl in an interrupted subcuticular fashion. Fascial defects were less than 8 mm in size. Please note along the trocar sites, local anesthetic was placed as a field block prior to insertion of all instruments. Liquid glue was applied to the skin. At the end of the procedure needle, sponge, and instrument count had been verified correct by the surgical clinical reviewer. The patient was transferred to postanesthesia care unit in stable condition. Intraoperative films were shared with the patient's family. Plan - Discharge Summary Discharge Rx Participant: No New Discharge Prescriptions: New Acetaminophen Tab [Tylenol Tab] 1,000 mg PO Q6HR PRN #30 tablet PRN Reason: Pain Simethicone [Gas-X] 125 mg PO AC-TID PRN #20 capsule PRN Reason: Pain Ibuprofen [Motrin] 600 mg PO Q8HR PRN #30 tab PRN Reason: Pain Continue Multivitamins, Thera [Multivitamin (formulary)] 1 tab PO DAILY Albuterol Inhaler [Ventolin Hfa Inhaler] 1 - 2 puff INHALATION DIRECTED PRN PRN Reason: Shortness Of Breath Rosuvastatin [Crestor] 10 mg PO HS Fluticasone Nasal [place] [Flonase Nasal [place]] 1 spray EA NOSTRIL DAILY PRN PRN Reason: Allergy Symptoms Omeprazole [PriLOSEC] 40 mg PO DAILY #14 cap Discontinued Acetaminophen Tab [Tylenol Tab] 1,000 mg PO Q6HR PRN #30 tablet PRN Reason: Pain Simethicone 40 mg/0.6 ml Drops [Mylicon Drops] 40 mg PO Q6HR PRN #30 ml PRN Reason: Abdominal Distention Discharge Medication List Albuterol Inhaler [Ventolin Hfa Inhaler] 1 - 2 puff INHALATION DIRECTED PRN 03/14/16 [History] Multivitamins, Thera [Multivitamin (formulary)] 1 tab PO DAILY 03/14/16 [History] Fluticasone Nasal [place] [Flonase Nasal [place]] 1 spray EA NOSTRIL DAILY PRN 10/26/23 [History] Rosuvastatin [Crestor] 10 mg PO HS 10/26/23 [History] Omeprazole [PriLOSEC] 40 mg PO DAILY #14 cap 01/22/24 [Rx] Acetaminophen Tab [Tylenol Tab] 1,000 mg PO Q6HR PRN #30 tablet 03/04/24 [Rx] Ibuprofen [Motrin] 600 mg PO Q8HR PRN #30 tab 03/04/24 [Rx] Simethicone [Gas-X] 125 mg PO AC-TID PRN #20 capsule 03/04/24 [Rx] Follow up Appointment(s)/Referral(s): Maria Ines Hood MD [STAFF PHYSICIAN] - 03/08/24 6:30 pm (TELEHEALTH) Patient Instructions/Handouts: *Surgery [facility] - (Anesthesia) Discharge Instructions Outpatient Surgery, Laparoscopic Cholecystectomy (DC) Activity/Diet/Wound Care/Special Instructions: DO NOT RETURN TO WORK UNTIL CLEARED BY SURGEON TELEHEALTH - DR WILL CALL YOU BETWEEN 9 am to 8 pm NO LONG DRIVES OR AIRPLANE RIDES OVER 60 MINUTES FOR THE NEXT 2 WEEKS, 11/22/24, DUE TO HIGH RISK OF PULMONARY EMBOLISM/DVTs May drive in 72 hrs, 03/07/24 Recommend low-fat diet for the next 2 days. No lifting over 10 pounds in 2 weeks until 03/18/24 May shower. No bath tub soaks for two weeks until 03/18/24 Diet as tolerated. Use Tylenol, simethicone and ibuprofen or Aleve scheduled for the next 24-48 hours for best pain relief. Use ice along incisions for today to prevent swelling. Discharge Disposition: HOME SELF-CARE
== END | disposition home or self-care (01) ==
LOC: OR 14:01
PROVIDERS: ATTEND Surgery Plastic and Reconstructive Surgery
DX: K81.1 Chronic cholecystitis (principal); E78.5 Hyperlipidemia, unspecified; J45.909 Unspecified asthma, uncomplicated; K21.9 Gastro-esophageal reflux disease without esophagitis; M19.90 Unspecified osteoarthritis, unspecified site; F41.1 Generalized anxiety disorder; F40.240 Claustrophobia; Z98.890 Other specified postprocedural states; Z79.899 Other long term (current) drug therapy; Z80.0 Family history of malignant neoplasm of digestive organs
CPT/HCPCS: 47562; S2900; 80053; 85025; 88304

== ENCOUNTER 2024-11-16 08:01 | Day surgery (SDC) | payer BC ==
--- NOTE | 2024-11-16 08:10 | P.GSHP ---
History of Present Illness H&P Date: 11/16/24 CHIEF COMPLAINT: Dysphagia and colon screen HISTORY OF PRESENT ILLNESS: The patient is a 63-year-old female who presents with dysphagia, gastroesophageal reflux disease and need for colon screen. Upper and lower endoscopy were offered for further evaluation and management. PAST MEDICAL HISTORY: Please see list. PAST SURGICAL HISTORY: Please see list. MEDICATIONS: Please see list. ALLERGIES: Please see list. SOCIAL HISTORY: No illicit drug use FAMILY HISTORY: No reports of Crohn disease or ulcerative colitis. REVIEW OF ORGAN SYSTEMS: CONSTITUTIONAL: No reports of fevers or chills. GI: Denies any blood in stools or constipation. PHYSICAL EXAM: VITAL SIGNS: Stable GENERAL: Well-developed pleasant in no acute distress. HEENT: No scleral icterus. Extraocular movements grossly intact. Moist buccal mucosa. NECK: Supple without lymphadenopathy. CHEST: Unlabored respirations. Equal bilateral excursions. CARDIOVASCULAR: Regular rate and rhythm. Distal 2+ pulses. ABDOMEN: Soft, nondistended. MUSCULOSKELETAL: No clubbing, cyanosis, or edema. ASSESSMENT: 1. Dysphagia and gastroesophageal reflux disease 2. Colon screen. PLAN: 1. Recommend proceeding with an upper and lower endoscopy Past Medical History Past Medical History: Hyperlipidemia, Osteoarthritis (OA) Additional Past Medical History / Comment(s): hx occ palpipations-PAST HISTORY - HORMONAL. seasonal allergies. lg hiatal hernia repaired in Sept. & is now back, hx. colon polyp, diverticulosis, recently had cystoscopy surg. w/ureteral stent in [place] in August & then stent removed History of Any Multi-Drug Resistant Organisms: None Reported Past Surgical History: Breast Surgery, Section, Cholecystectomy, Hernia Repair Additional Past Surgical History / Comment(s): breast biopsy-rt, colonoscopy, dental implant, laparoscopic/robotic hiatal hernia repair w/lauren 01/22/24, cysto. w/ureteral stent in August in [place] Past Anesthesia/Blood Transfusion Reactions: Motion Sickness Additional Past Anesthesia/Blood Transfusion Reaction / Comment(s): BP became low during last surgery & the one in the fall Smoking Status: Never smoker - Past Family History Mother Family Medical History: Cancer Additional Family Medical History / Comment(s): COLON CANCER, GRANDMOTHER- COLON CANCER aunts and uncles Medications and Allergies Home Medications Medication Instructions Recorded Confirmed Type Fluticasone Nasal [place] [Flonase 1 spray EA NOSTRIL DAILY PRN 10/26/23 11/14/24 History Nasal Gypsum] Rosuvastatin [Crestor] 10 mg PO HS 10/26/23 11/14/24 History Acetaminophen Tab [Tylenol Tab] 1,000 mg PO Q6HR PRN #30 tablet 03/04/24 11/14/24 Rx Montelukast [Singulair] 10 mg PO HS 11/14/24 11/14/24 History Allergies Allergy/AdvReac Type Severity Reaction Status Date / Time No Known Allergies Allergy Verified 11/14/24 14:41
[2024-11-16] MEDS: IV FLUID CONTINUATION 1,000 ML IV ONE (08:29)
[2024-11-16 08:31] VITALS: TEMP 98.7
[2024-11-16] MEDS: LACTATED RINGERS 1,000 ML IV SCH (08:34)
[2024-11-16] MEDS ORDERED: PROPOFOL 10 MG/ML 20 ML VIAL IV ONE (09:10)
[2024-11-16] MEDS ORDERED: PHENYLEPHRINE-0.9% NACL SYG 1,000 MCG/10 ML SYRINGE ONE (09:10)
[2024-11-16] MEDS ORDERED: LIDOCAINE 1% INJ 10MG/ML (20 ML MDV) ONE (09:10)
--- NOTE | 2024-11-16 09:39 | P.PCN ---
Date of Procedure: 11/16/24 Description of Procedure: PREOPERATIVE DIAGNOSIS: Dysphagia Hiatal hernia POSTOPERATIVE DIAGNOSIS: Esophageal stricture Recurrent diaphragmatic hiatal hernia Gastritis OPERATION: Esophagogastroduodenoscopy with rigid dilator over the guidewire 51 Fr with dilation Esophagogastroduodenoscopy with cold forceps biopsies stomach/antrum, duodenum, esophagus SURGEON: Maria Ines Hood MD ANESTHESIA: MAC. INDICATIONS: The patient is a 63-year-old female who presents atypical chest pain, dysphagia, history of hiatal hernia. Benefits and risks of the procedure were described. Informed consent was obtained. DESCRIPTION: The patient was brought into the endoscopy suite and laid in the left lateral de cubitus position. After a timeout was confirmed, the procedure was initiated. An Olympus gastroscope was passed into the posterior oropharynx where an upper esophageal stenosis was identified. The scope was passed down to the distal esophagus. To address the mid esophageal stenosis, rigid dilator over guidewire was selected. Next using an Turkish rigid dilator, a guidewire was placed through the gastroscope. Next the scope was withdrawn. A 51-Kazakh rigid Turkish dilator was passed carefully along the posterior oropharynx to 45 cm and left in place for 2-3 minutes stretch. The dilator was withdrawn including the guidewire. The scope was reentered along the posterior oropharynx with no findings of full- thickness tear of the upper esophageal sphincter. Additional findings below. Within the stomach, severe acute gastritis with gastric ulcerations were identified along the body of the stomach with cold forceps biopsies obtained. The lower esophageal valve was evaluated with Hill grade 2 lower esophageal valve. LA grade B erosive esophagitis was identified. No full-thickness injury was encountered. The GI tract was desufflated. The patient tolerated the procedure well. FINDINGS: Upper esophageal stenosis dilated 51-Kazakh rigid dilator Diaphragmatic hiatus at 35 cm from the incisors Squamocolumnar junction 38 cm from the incisors. Recurrent diaphragmatic hiatal hernia, 3 cm Gastritis along the gastric body and fundus cold forceps biopsies obtained Duodenum with biopsies obtained LA grade B erosive esophagitis, biopsies obtained Hill grade 2 lower esophageal valve. RECOMMENDATIONS: May benefit from repair of recurrent hiatal hernia Omeprazole 40 mg daily Repeat upper endoscopy 4 weeks
--- NOTE | 2024-11-16 09:56 | P.PCN ---
Date of Procedure: 11/16/24 Description of Procedure: PREOPERATIVE DIAGNOSIS: Colonoscopy screening. POSTOPERATIVE DIAGNOSIS: Colonoscopy screening. Diverticulosis, scattered. OPERATION: Colonoscopy to the cecum, ileocecal valve and appendiceal orifice. SURGEON: Maria Ines Hood MD. ANESTHESIA: MAC. INDICATIONS: The patient is a 63-year-old female who presents for colonoscopy screening. Benefits and risks were described and informed consent was obtained. DESCRIPTION OF PROCEDURE: The patient had undergone Suprep. The patient had been brought into the operating room and laid in the left lateral decubitus position. After adequate intravenous sedation, the rectum was examined with 2% lidocaine jelly. No external hemorrhoids were encountered. The rectal tone was within normal limits. No lesions were palpated in the rectal vault. An Olympus colonoscope was advanced until the cecum, ileocecal valve and appendiceal orifice were clearly viewed. The prep was fair with stool limiting complete assessment of mucosal. Scattered diverticulosis was encountered. No colonic polyps were found. No evidence of focal colitis was found. Retroflexion of the scope demonstrated grade 1 internal hemorrhoids without active bleeding or inflammation. The colon was desufflated. The patient had tolerated the procedure well. Withdrawal time was over 6 minutes. FINDINGS: Aronchick preparation quality scale 3 (1-5) Internal hemorrhoids, grade 1 No external prolapsed hemorrhoids. No arteriovenous malformations. No adenomatous polyps. No focal colitis. Moderate sigmoid diverticulosis RECOMMENDATIONS: Lower endoscopy in 5 years2029 Plan - Discharge Summary Discharge Rx Participant: No New Discharge Prescriptions: New Omeprazole [PriLOSEC] 40 mg PO DAILY #14 cap Continue Rosuvastatin [Crestor] 10 mg PO HS Acetaminophen Tab [Tylenol] 1,000 mg PO Q6HR PRN #30 tablet PRN Reason: Pain Fluticasone Nasal [place] [Flonase Nasal [place]] 1 spray EA NOSTRIL DAILY PRN PRN Reason: Allergy Symptoms Montelukast [Singulair] 10 mg PO HS Discharge Medication List Fluticasone Nasal [place] [Flonase Nasal [place]] 1 spray EA NOSTRIL DAILY PRN 10/26/23 [History] Rosuvastatin [Crestor] 10 mg PO HS 10/26/23 [History] Acetaminophen Tab [Tylenol] 1,000 mg PO Q6HR PRN #30 tablet 03/04/24 [Rx] Montelukast [Singulair] 10 mg PO HS 11/14/24 [History] Omeprazole [PriLOSEC] 40 mg PO DAILY #14 cap 11/16/24 [Rx] Follow up Appointment(s)/Referral(s): Maria Ines Hood MD [STAFF PHYSICIAN] - 12/13/24 11:00 am Patient Instructions/Handouts: Diverticulosis Diet (GEN), Diverticulosis (GEN), Hiatal Hernia (DC) Activity/Diet/Wound Care/Special Instructions: Repeat colonoscopy 5 years, 2029 Discharge Disposition: HOME SELF-CARE
[2024-11-16 10:00] VITALS: RESP 16
[2024-11-16 10:06] VITALS: BP 119/67; PULSE 68
== END 2024-11-16 11:11 | disposition home or self-care (01) ==
LOC: ORWHC2ENDO 08:01
PROVIDERS: ATTEND Surgery Plastic and Reconstructive Surgery
DX: Z12.11 Encounter for screening for malignant neoplasm of colon (principal); K44.9 Diaphragmatic hernia without obstruction or gangrene; D72.10 Eosinophilia, unspecified; K22.2 Esophageal obstruction; K29.50 Unspecified chronic gastritis without bleeding; K31.89 Other diseases of stomach and duodenum; K21.9 Gastro-esophageal reflux disease without esophagitis; K31.A0 Gastric intestinal metaplasia, unspecified; K57.30 Diverticulosis of large intestine without perforation or abscess without bleeding; E78.5 Hyperlipidemia, unspecified; J45.909 Unspecified asthma, uncomplicated; M19.90 Unspecified osteoarthritis, unspecified site; Z80.0 Family history of malignant neoplasm of digestive organs; Z86.0100 Personal history of colon polyps, unspecified; Z90.49 Acquired absence of other specified parts of digestive tract; Z79.1 Long term (current) use of non-steroidal anti-inflammatories (NSAID); Z79.899 Other long term (current) drug therapy
CPT/HCPCS: 88305; 45378; 43239; 43248; J2003; J2704; J2371